=== PATIENT | female | born 1990 | race Caucasian/White ===

== ENCOUNTER 2021-06-14 09:07 | Emergency (ER) | payer OTHER, MEDICAID, SELFPAY ==
[2021-06-14 09:10] VITALS: BP 122/80; PULSE 110; RESP 18; TEMP 37.6; O2SAT 99; BMI 32.4
--- NOTE | 2021-06-14 09:47 | HMH.EDUTC ---
[facility] Disposition Clinical Impression: Strep throat, Encounter for laboratory testing for COVID-19 virus Disposition: Home, Self-Care Condition on Discharge: Good Instructions: DI for Strep Throat, DI for COVID-19 (Suspected or Confirmed ), Preventing the Spread of Coronavirus Discharge Instructions Additional Instructions: *Monitor Temp, Over the counter Motrin or Tylenol as directed/as needed Tylenol every 4 hours and Motrin every 6 hours (as long as your family doctor has told you that you can take it) for fever or pain. and straight to ER if unable to lower temp less than 101.0 after medication given *Warm salt water gargles may help to soothe the throat *Throat Lozenges *Warm fluids like tea with honey may help to soothe the throat *Sleep elevated *Humidifier/Vaporizer Start oral antibiotics tomorrow 06/15/21 Follow up IMMEDIATELY for new or worsening symptoms or no Noticeable improvement over the next 48-72 hours. 911 for difficulty breathing or swallowing You were tested for today for COVID19 your test result should be back in the next 24-48 hours, you may call to the [facility] to see if your test results are back in the next 48 hours [phone] [facility] hours are 9am-9pm You was given a handout with instructions for Self Quarantine and Self isolation for while you wait on test results and what to do if they are positive If you are positive the Health Dept will be contacting you also Make sure to take your Vitamins Vit. C Vit D and Zinc if you can take them Prescriptions: Cefdinir [Omnicef 300mg Capsule] 300 mg PO BID #20 cap Transmission Status: Received by [facility] Referrals: Fiona Sweeney [Primary Care Provider] - As needed Forms: Work/School Release Medical Decision Making - Zack Inquiry Pt receiving controlled substance: No Zack was queried for this patient: No Vital Signs: 06/14/21 09:10 06/14/21 10:12 Temperature 99.7 F H 99.7 F H Temperature Source Oral Pulse Rate 110 H Pulse Rate [Right Brachial] 110 H Respiratory Rate 18 18 Blood Pressure 122/80 Blood Pressure [Right Arm] 122/80 Blood Pressure Mean [Right Arm] 94 Blood Pressure Source [Right Arm] Automatic Cuff Blood Pressure Position [Right Arm] Sitting 02 Sat by Pulse Oximetry 99 Oxygen Delivery Method Room Air - Lab Data Lab Results 06/14/21 09:42: Strep Scn [facility] Negative Orders (Tests/Meds): ED MEDICATIONS Discontinued Medications Generic Name Dose Route Start Last Admin Trade Name Aida PRN Reason Stop Dose Admin Ceftriaxone Sodium 1 gm 06/14/21 10:06/14/21 10:10 Ceftriaxone 1gm Vial IM 06/14/21 10:10 1 gm ONCE ONE Administration Dexamethasone Sodium Phosphate 4 mg 06/14/21 10:06/14/21 10:10 Dexamethasone 4mg/Ml 1ml Vial IM 06/14/21 10:10 4 mg ONCE ONE Administration Lidocaine HCl 0 ml 06/14/21 10:06/14/21 10:10 Lidocaine 1% 5ml Pf Vial IM 06/14/21 10:10 2.1 ml ONCE ONE Administration ORDERS Category Date Time Status Strep Screen Confirmation Routine Micro 06/14/21 09:42 Received [facility] HPI - General Stated complaint: sore throat, BERMAN, body aches Time Seen by Provider: 06/14/21 09:47 Mode of Arrival: Ambulatory Source of Information: Patient Limitations: No Limitations Description of Symptoms (Recalled from Triage Doc. by RN): PATIENT C/O SORE THROAT, FEVER, CHILLS, BODY ACHES THAT STARTED YESTERDAY. REQUESTING COVID TEST HEENT Symptoms (Recalled from RN notes): Yes Resp Symptoms (Recalled from RN notes): No Skin Symptoms (Recalled from RN notes): No MS Symptoms (Recalled from RN notes): No Functional Status (Recalled from RN notes): WNL - History of Present Illness Provider Complaint: Patient states that she had to leave work early due to her throat started hurting, she had a headache an over all didnt feels well States that after she got home she didnt sleep well due to having body aches and chills State that today her thro
[2021-06-14 09:53] LABS: UTC Strep Screen (Rapid) Negative (Negative)
[2021-06-14 10:12] VITALS: BP 122/80; PULSE 110; RESP 18; TEMP 37.6; O2SAT 99
== END 2021-06-14 10:18 | disposition home or self-care (01) ==
PROVIDERS: Emergency Provider Nurse Practitioner; PCP Family Medicine Geriatric Medicine
DX: J02.0 Streptococcal pharyngitis (principal); U07.1 COVID-19
CPT/HCPCS: 87880; 96372; 99202; G0463; U0003